=== PATIENT | male | born 1985 | race Caucasian/White ===

== ENCOUNTER 2024-03-19 17:44 | Emergency (ER) | payer OTHER ==
[2024-03-19] MEDS ORDERED: Ketorolac Tromethamine 30 MG (1 mL) VIAL ONE (19:31)
[2024-03-19] MEDS ORDERED: Orphenadrine Citrate 100 MG ER.TAB ONE (19:39)
[2024-03-19] MEDS ORDERED: HYDROcodone/Acetaminophen 10/325 mg Tablet ONE (19:40)
== END 2024-03-19 19:50 | disposition home or self-care (01) ==
LOC: ERS 17:44
DX: M25.561 Pain in right knee (principal)
CPT/HCPCS: 96372; 99283; J1885